=== PATIENT | female | born 1930 | race Caucasian/White ===

== ENCOUNTER 2016-09-07 21:31 | Inpatient (IN) | payer OTHER, MEDICAID ==
[~2016-09-07] VITALS: Ht 167.6 cm; Wt 69.4 kg
--- NOTE | 2016-09-07 21:12 | NUR ---
ROUNDS PT IS AWAKE @ THIS TIME. NO C/O PAIN AND NO RESPI DISTRESS NOTED. BED IN LOW POSITION.CALL LIGHT LIGHT IN REACH,WILL CONT TO MONITOR.
[2016-09-07 21:38] VITALS: BP 137/99; PULSE 102; RESP 20; TEMP 97; O2SAT 97
--- NOTE | 2016-09-07 21:44 | NUR ---
Placed in room 6 . Placed on cardiac catheterization technologist, blood pressure machine and pulse oximeter. To gown for exam. Side rails up. Report given to Rosa Isela TROY.
--- NOTE | 2016-09-07 21:44 | NUR ---
Note hardik in ED - 09/07/16 at 2201 by ISSAC Placed in room 6 . Placed on brownfield program coordinator, blood pressure machine and pulse oximeter. To gown for exam. Side rails up. Report given to Izzy TROY.
--- NOTE | 2016-09-07 21:45 | NUR ---
Pt brought by son, A&O x4, pt c/o SOB with exertion for the last couple days, also redness and +3 pitting edema noted on BLE, skin pink and warm, cap refill <3, VSS.
--- NOTE | 2016-09-07 21:46 | NUR ---
Dr Beal at bedside examining patient
--- NOTE | 2016-09-07 22:00 | NUR ---
Moustapha dye in ED - 09/07/16 at 2347 by [email or web address] Medication reconciliation completed with information provided by pt's son. Any prior medication reconciliation on file was reviewed and corrected.
[2016-09-07] MEDS ORDERED: ASPIRIN 81 MG TAB.CHEW PO ONE (22:15)
[2016-09-07] MEDS ORDERED: FUROSEMIDE 40 MG/4 ML VIAL IVP ONE (22:15)
[2016-09-07 22:25] LABS: HEMATOCRIT 32.1 % (36-48); HEMOGLOBIN 10.4 g/dL (12.0-16.0); MEAN CORPUSCULAR HEMOGLOBIN 29 pg (27-31); MEAN CORPUSCULAR HGB CONC 32 % (32-36); MEAN CORPUSCULAR VOLUME 89 fL (79.0-98.0); PLATELET COUNT (AUTO) 205 K/uL (130-430); RED BLOOD CELL COUNT(AUTO) 3.62 MIL/uL (4.2-6.2); RED CELL DISTRIBUTION WIDTH 13.3 % (9.0-15.0); WHITE BLOOD COUNT (AUTO) 7.7 K/uL (4.8-10.8)
[2016-09-07] MEDS ORDERED: METO25TA3 PO (22:48)
[2016-09-07] MEDS ORDERED: METF-305 PO (22:48)
[2016-09-07] MEDS ORDERED: PARO40TA80 PO (22:48)
[2016-09-07] MEDS ORDERED: ROSU20TA28 PO (22:48)
[2016-09-07] MEDS ORDERED: FURO-150 PO (22:48)
[2016-09-07] MEDS ORDERED: ASPI81TA2 PO (22:48)
--- NOTE | 2016-09-07 22:48 | NUR ---
Medication reconciliation completed with information provided by patient . Any prior medication reconciliation on file was reviewed and corrected.
[2016-09-07 22:53] LABS: ANION GAP 8 (5-15); CALCIUM 8.8 mg/dL (8.4-11.0); CHLORIDE 101 mmol/L (98-107); CREATININE 1.47 mg/dL (0.55-1.30); GLUCOSE 125 mg/dL (70-99); POTASSIUM 3.3 mmol/L (3.5-5.1); SODIUM SERUM 138 mmol/L (136-145); UREA NITROGEN, BLOOD 35 mg/dL (8-21)
[2016-09-07 22:58] LABS: ALANINE AMINOTRANSFERASE 22 U/L (12-78); ALBUMIN 3.4 g/dL (3.4-4.8); ASPARTATE AMINOTRANSFERASE 22 U/L (10-37); CREATINE KINASE, TOTAL 118 U/L (26-192); TOTAL BILIRUBIN 0.6 mg/dL (0.0-1.0)
[2016-09-07 23:06] LABS: PROTHROMBIN TIME 11.3 SECS (9.5-12.5)
[2016-09-07 23:07] LABS: BASOPHILS % (MANUAL) 0 % (0-2); EOSINOPHILS % (MANUAL) 1 % (0-7); LYMPHOCYTES % (MANUAL) 32 % (20-46); MONOCYTES % (MANUAL) 15 % (0-11)
--- NOTE | 2016-09-07 23:07 | NUR ---
Care Endorsed to Carmine TROY
--- NOTE | 2016-09-07 23:11 | NUR ---
pt in bed, son at bedside, VSS, will continue to monitor
--- NOTE | 2016-09-07 23:30 | NUR ---
Pt meets sepsis protocol, ER MD Beal aware of lab result and pt presentation. Awaiting sepsis protocol orders.
[2016-09-07] MEDS ORDERED: FUROSEMIDE 20 MG/2 ML VIAL IVP ONE (23:45)
[2016-09-08] VITALS (7 sets, daily range): BP systolic 120–133; BP diastolic 66–90; PULSE 105–122; RESP 17–20; TEMP 96.9–98.7; O2SAT 97–100
--- NOTE | 2016-09-08 01:08 | NUR ---
Lactic acid result 3.3 and 2.6 . stated that pt has CHF exacerbation, pedal edema, and pleural effusion, pt to be given 500 mL NS bolus and levaquin IV.
[2016-09-08] MEDS ORDERED: NS 500 ML IV ONE (01:15)
[2016-09-08] MEDS ORDERED: POTASSIUM CHLORIDE 20 MEQ TAB.PRT.SR PO ONE ×2 (01:45→13:30)
[2016-09-08] MEDS ORDERED: INSULIN REGULAR, HUMAN 100 UNITS/ML, 10 ML VIAL (novoLIN R) SUBCUT PRN (02:00)
--- NOTE | 2016-09-08 02:12 | NUR ---
Admission Note Received patient from ER with diagnosis of ACUTE CHF. Initial Plan of Care discussed-patient verbalized understanding. Family at bedside. Oriented to room, call light, pain management and safety.
--- NOTE | 2016-09-08 02:13 | NUR ---
Patient will be admitted to care of . Admitted to telemetry unit. Will go to room 120B. Belongings list completed. Summary report printed. Report given to Yuni TROY Transfer to 120B via ACLS protocol. 2 Licensed nurse present. IV present no signs or symptoms of infiltration.
--- NOTE | 2016-09-08 02:31 | NUR ---
CONSULTATION PAGED REASON FOR CONSULTATION:CONGESTIVE HEART FAILURE EXACERBATION WAS CONSULT CALLED?Y PERSON WHO WAS NOTIFIED:BRII CONSULTING PHYSICIAN:NITZA SIMMONS COMMUNITY BOARD MEMBER SPECIALTY:YARD MOTOR OPERATOR PHONE NUMBER:[phone]
--- NOTE | 2016-09-08 02:45 | NUR ---
ROUNDS PATIENT IN BED, AWAKE, ALERT, ORIENTED, VITALS STABLE, DENIES ANY CHEST PAIN AND DISCOMFORT AT THIS TIME. ADMISSION ASSESSMENT DONE AND DOCUMENTED. SEE FLOWSHEET. PLAN OF CARE DISCUSSED AND PATIENT VERBALIZED UNDERSTANDING. ORIENTED TO HER ROOM, PHONE, TV AND CALL LIGHT AND ENCOURAGED TO USE CALL LIGHT FOR HELP WHEN NEEDED. NEEDS ATTENDED TO. SAFETY AND FALL PRECAUTION MEASURES IN PLACED. BED ALARM ON. CALL LIGHT PLACED WITH PATIENT.
[2016-09-08] MEDS ORDERED: POTASSIUM CHLORIDE 30 MEQ in NACL 0.9% 1,000 ML IV SCH (03:45)
--- NOTE | 2016-09-08 04:00 | NUR ---
PATIENT RESTING: Patient resting quietly. No acute distress noted. Vital signs within normal range.
--- NOTE | 2016-09-08 06:50 | NUR ---
CLOSING NOTES PATIENT STABLE, DENIES ANY PAIN AT THIS TIME, ALL NEEDS ATTENDED TO. SAFETY AND FALL PRECAUTION MEASURES MAINTAINED. CALL LIGHT PLACED WITH PATIENT.
[2016-09-08] MEDS: IPRATROPIUM BROM 0.5 MG/2.5 ML VIAL.NEB (ATROVENT) INH SCH ×4 (07:20→23:00)
[2016-09-08] MEDS: ALBUTEROL SULFATE 0.083% 2.5 MG/3 ML VIAL.NEB INH SCH ×4 (07:20→23:00)
--- NOTE | 2016-09-08 08:00 | NUR ---
AM NOTES PT AAOX3 WITH EPISODES OF FORGETFULNESS AND COOK ISLANDER SPEAKING ONLY. NO COMPLAINTS OF PAIN OR DISCOMFORT. NO SOB, DIFFICULTY BREATHING OR DISTRESS NOTED. COMPETITIVE ATHLETE IN PLACE. IV TO RIGHT AC #20G PATENT WITH IV FLUID INFUSING. SAFETY AND FALL PRECAUTIONS ENFORCED WITH BED ALARM ARMED, CLOSE TO NURSE'S STATION AND WITH 3 SIDE RAILS UP. ENCOURAGED TO CALL FOR ASSISTANCE. CALL LIGHT WITHIN REACH. WILL MONITOR.
[2016-09-08] MEDS ORDERED: NACL 0.9% 500 ML IV SCH (08:30)
[2016-09-08 08:55] LABS: CHLORIDE 102 mmol/L (98-107); POTASSIUM 3.4 mmol/L (3.5-5.1); SODIUM SERUM 143 mmol/L (136-145)
[2016-09-08 08:56] LABS: ALANINE AMINOTRANSFERASE 22 U/L (12-78); ALBUMIN 3.1 g/dL (3.4-4.8); ANION GAP 10 (5-15); ASPARTATE AMINOTRANSFERASE 23 U/L (10-37); CALCIUM 8.6 mg/dL (8.4-11.0); CREATINE KINASE, TOTAL 112 U/L (26-192); CREATININE 1.29 mg/dL (0.55-1.30); GLUCOSE 154 mg/dL (70-99); TOTAL BILIRUBIN 0.4 mg/dL (0.0-1.0); TOTAL PROTEIN, SERUM 6.4 g/dL (6.4-8.3); UREA NITROGEN, BLOOD 30 mg/dL (8-21)
[2016-09-08] MEDS ORDERED: METOPROLOL SUCCINATE 25 MG TAB.SR.24H (TOPROL XL) PO SCH (09:00)
[2016-09-08] MEDS ORDERED: PARoxetine HCL 20 MG TABLET PO SCH (09:00)
--- NOTE | 2016-09-08 09:10 | NUR ---
Nutrition Update Omar Scale 17 noted. Pt admitted for CHF exacerbation. Diet: [facility] BMI: 25.8 kg/m2 RD to follow per nutrition care standards.
[2016-09-08] MEDS: ASPIRIN 81 MG TAB.CHEW PO SCH (09:54)
--- NOTE | 2016-09-08 10:00 | NUR ---
ROUNDS PT AWAKE RESTING IN BED AND ASSISTED TO BEDSIDE COMMODE. NO COMPLAINTS OF PAIN OR DISCOMFORT. NO DISTRESS NOTED. BACK IN BED AND KEPT COMFORTABLE. WILL MONITOR.
[2016-09-08] MEDS: FUROSEMIDE 40 MG/4 ML VIAL IVP SCH ×2 (10:16→21:28)
--- NOTE | 2016-09-08 11:00 | NUR ---
NEW IV NEW IV INSERTED TO RIGHT FOREARM #22G. D/C IV TO RIGHT AC DUE TO MACHINE KEEPS BEEPING AND STATES ARM PRESSURE. PT WANTS BEEPING TO STOP.
[2016-09-08 11:46] LABS: BILIRUBIN,URINE NEGATIVE (NEGATIVE); CLARITY/URINE CLEAR (CLEAR); COLOR,URINE YELLOW (YELLOW); GLUCOSE,URINE NEGATIVE (NEGATIVE); KETONES,URINE NEGATIVE (NEGATIVE); LEUKOCYTE ESTERASE ,URINE NEGATIVE (NEGATIVE); NITRITE, URINE NEGATIVE (NEGATIVE); PROTEIN URINE NEGATIVE (NEGATIVE); UROBILINOGEN,URINE 0.2 (0.2-1.0)
[2016-09-08 11:50] LABS: BLOOD, URINE TRACE (NEGATIVE)
[2016-09-08 11:59] LABS: RBC,URINE 0-3 /HPF (0-3)
[2016-09-08 12:00] LABS: BACTERIA,URINE RARE /HPF (None Seen); WBC,URINE NONE SEEN /HPF (0-3)
--- NOTE | 2016-09-08 12:00 | NUR ---
REFUSED INSULIN PT AWAKE. BLOOD SUGAR MONITOR 159. REFUSED INSULIN SLIDING SCALE COVERAGE. EDUCATED ABOUT IMPORTANCE OF INSULIN COVERAGE. CONTINUES TO REFUSE.
[2016-09-08] MEDS: INSULIN REGULAR, HUMAN 100 UNITS/ML, 10 ML VIAL (novoLIN R) SUBCUT PRN ×3 (12:07→22:02)
--- NOTE | 2016-09-08 13:20 | NUR ---
THORACENTESIS PT HAVING THORACENTESIS INSIDE ROOM. NO COMPLAINTS OF PAIN OR DISCOMFORT. NO DISTRESS NOTED.
[2016-09-08 13:51] LABS: BASOPHILS % (AUTO) 0.7 % (0.0-2.0); EOSINOPHILS % (AUTO) 0.6 % (0.0-4.0); HEMATOCRIT 31.8 % (36-48); HEMOGLOBIN 10.8 g/dL (12.0-16.0); LYMPHOCYTES # (AUTO) 1.1 K/uL (1.0-5.5); LYMPHOCYTES % (AUTO) 20.7 % (20.5-51.5); MEAN CORPUSCULAR HEMOGLOBIN 29 pg (27-31); MEAN CORPUSCULAR HGB CONC 34 % (32-36); MEAN CORPUSCULAR VOLUME 86 fL (79.0-98.0); MONOCYTES # (AUTO) 0.6 K/uL (0.0-1.0); MONOCYTES % (AUTO) 12.3 % (1.7-9.3); NEUTROPHILS # (AUTO) 3.6 K/uL (1.8-7.7); NEUTROPHILS % (AUTO) 65.7 % (40.0-70.0); PLATELET COUNT (AUTO) 204 K/uL (130-430); RED BLOOD CELL COUNT(AUTO) 3.71 MIL/uL (4.2-6.2); RED CELL DISTRIBUTION WIDTH 13.4 % (9.0-15.0)
[2016-09-08 13:53] LABS: WHITE BLOOD COUNT (AUTO) 5.3 K/uL (4.8-10.8)
--- NOTE | 2016-09-08 14:08 | NUR ---
Follow up cardiac consult called for Dr. Nahid GALLEGO
--- NOTE | 2016-09-08 16:00 | NUR ---
ROUNDS PT ASLEEP. NO SIGNS OF FACIAL GRIMACING FOR PAIN OR DISCOMFORT. NO DISTRESS NOTED. CALL LIGHT WITHIN REACH. SAFETY AND FALL PRECAUTIONS ENFORCED. WILL CONTINUE TO MONITOR.
[2016-09-08 18:27] LABS: SOURCE/TYPE ,BODY FLUID PLEURAL
[2016-09-08 18:28] LABS: BF APPEARANCE UNSPUN CLEAR (CLEAR); BODY FLUID COLOR YELLOW (LT YELLOW); BODY FLUID TOTAL VOLUME 400 mL; LYMPHOCYTES, BODY FLUID 84 %; NEUTROPHIL, BODY FLUID 16 %; RBC, BODY FLUID 33 /uL; WBC, BODY FLUID 211 /uL
--- NOTE | 2016-09-08 18:30 | NUR ---
CLOSING NOTES PT AWAKE RESTING IN BED. NO SIGNIFICANT CHANGES NOTED. INSULIN SLIDING SCALE ADMINISTERED. KEPT COMFORTABLE. WILL ENDORSE CARE TO INCOMING NURSE.
--- NOTE | 2016-09-08 19:50 | NUR ---
INITIAL NOTE Pt. received aao04, no s/s of sob or distress noted at this time. pt. denies any pain, VSS, with a slightly elevated heart rate, MD aware. will reassess after PM medications. IV access noted to right forearm, SL, no redness or swelling noted to the site. RT at the bedside to do a breathing treatment, asked pt. if possible, to provide a sputum culture, pt. verbalizes understanding. bilateral lower extremity edema noted, pitting +1. elevated legs on pillow to reduce swelling. pt. provided with ice water upon request. plan of care discussed with pt., verbalizes understanding. will continue to monitor throughout the shift. safety and fall precautions in place. call light in reach, bed in lowest position.
[2016-09-08] MEDS: CARVEDILOL 12.5 MG TABLET (COREG) PO SCH (21:27)
[2016-09-08] MEDS: LEVOFLOXACIN 250 MG/D5W 50 ML IV SCH (21:28)
--- NOTE | 2016-09-08 21:42 | NUR ---
paged for Dr Guy, dialed . s/w Elyse.
--- NOTE | 2016-09-08 22:05 | NUR ---
rounds pt. resting in bed, family is at the bedside. IV antibiotic infusing, no adverse reactions noted. pt. states she wishes to have a sleeping pill. spoke with Dr. Willett who ordered restoril, will administer when ready. pt. assisted to use the bedside commode, and back to bed in a comfortable position, supported well with pillows. legs are elevated on a pillow to reduce swelling. will continue to monitor for any changes. safety and fall precautions in place. call light in reach, bed alarm on.
[2016-09-08 22:13] LABS: BODY FLUID GLUCOSE 170 mg/dL; BODY FLUID TOTAL PROTEIN 3.2 g/dL
[2016-09-08] MEDS: TEMAZEPAM 15 MG CAPSULE PO PRN (22:46)
[2016-09-08] MEDS: metroNIDAZOLE 250 mg/NS 50 ML IV SCH (23:19)
[2016-09-09] VITALS (7 sets, daily range): BP systolic 93–138; BP diastolic 51–97; PULSE 78–113; RESP 17–20; TEMP 96.6–98.4; O2SAT 94–97; Ht 167.6 cm; Wt 69.4 kg
--- NOTE | 2016-09-09 00:02 | NUR ---
rounds pt. resting in bed with eyes closed, chest rise and fall noted. no s/s of sob or distress noted at this time. will continue to monitor the pt. for any changes. safety and fall precautions in place, call light in reach, bed alarm on.
--- NOTE | 2016-09-09 02:00 | NUR ---
rounds pt. resting in bed with eyes closed. chest rise and fall noted. no s/s of sob or distress noted at this time. will continue to monitor the pt. for any changes. safety and fall precautions in place. call light in reach, bed alarm on.
[2016-09-09] MEDS: IPRATROPIUM BROM 0.5 MG/2.5 ML VIAL.NEB (ATROVENT) INH SCH ×7 (03:00→23:00)
[2016-09-09] MEDS: ALBUTEROL SULFATE 0.083% 2.5 MG/3 ML VIAL.NEB INH SCH ×7 (03:00→23:00)
--- NOTE | 2016-09-09 04:04 | NUR ---
rounds pt. resting in bed with eyes closed. chest rise and fall noted. no s/s of sob or distress noted. no facial grimacing indicating pain. safety and fall precautions in place. will continue to monitor. call light in reach.
[2016-09-09] MEDS: metroNIDAZOLE 250 mg/NS 50 ML IV SCH ×3 (05:23→22:51)
[2016-09-09 06:12] LABS: BASOPHILS % (AUTO) 0.5 % (0.0-2.0); EOSINOPHILS # (AUTO) 0.1 K/uL (0.0-0.4); EOSINOPHILS % (AUTO) 1.3 % (0.0-4.0); HEMATOCRIT 29.5 % (36-48); HEMOGLOBIN 9.6 g/dL (12.0-16.0); LYMPHOCYTES # (AUTO) 1.4 K/uL (1.0-5.5); LYMPHOCYTES % (AUTO) 27.4 % (20.5-51.5); MEAN CORPUSCULAR HEMOGLOBIN 29 pg (27-31); MEAN CORPUSCULAR HGB CONC 32 % (32-36); MEAN CORPUSCULAR VOLUME 88 fL (79.0-98.0); MONOCYTES # (AUTO) 0.7 K/uL (0.0-1.0); MONOCYTES % (AUTO) 13.8 % (1.7-9.3); NEUTROPHILS # (AUTO) 2.8 K/uL (1.8-7.7); PLATELET COUNT (AUTO) 189 K/uL (130-430); RED BLOOD CELL COUNT(AUTO) 3.35 MIL/uL (4.2-6.2); RED CELL DISTRIBUTION WIDTH 13.6 % (9.0-15.0)
[2016-09-09 06:26] LABS: ALANINE AMINOTRANSFERASE 21 U/L (12-78); ALBUMIN 2.9 g/dL (3.4-4.8); ANION GAP 5 (5-15); ASPARTATE AMINOTRANSFERASE 17 U/L (10-37); CALCIUM 8.4 mg/dL (8.4-11.0); CHLORIDE 103 mmol/L (98-107); CHOLESTEROL 117 mg/dL (<200); CREATININE 1.27 mg/dL (0.55-1.30); GLUCOSE 87 mg/dL (70-99); HDL CHOLESTEROL 63 mg/dL (>55); LDL CHOLESTEROL 40 mg/dL (<100); POTASSIUM 3.2 mmol/L (3.5-5.1); SODIUM SERUM 140 mmol/L (136-145); THYROID STIMULATING HORMONE 2.91 uIu/mL (0.34-4.82); TOTAL BILIRUBIN 0.5 mg/dL (0.0-1.0); TOTAL PROTEIN, SERUM 6.3 g/dL (6.4-8.3); TRIGLYCERIDES 40 mg/dL (30-150); UREA NITROGEN, BLOOD 31 mg/dL (8-21)
--- NOTE | 2016-09-09 06:51 | NUR ---
closing note pt. assisted to use the bedside commode, voided freely. assisted back to bed in a comfortable position supported well with pillows. legs are elevated to reduce swelling. all necessary needs were met throughout the shift. safety and fall precautions were maintained. will endorse care to am nurse. call light in reach, bed in lowest position.
[2016-09-09] MEDS ORDERED: POTASSIUM CHLORIDE 20 MEQ TAB.PRT.SR PO ONE ×2 (07:45→08:00)
--- NOTE | 2016-09-09 08:00 | NUR ---
AM NOTES: RECEIVED PATIENT LYING IN BED, ALERT, AWAKE, ORIENTEDX3, [place] SPEAKING. DENIES PAIN AND DISCOMFORT. LUNG SOUND CLEAR ON COUGH, HYPOACTIVE BOWEL SOUND. IV ACCESS SALINE LOCK PATENT. NO SKIN BREAKDOWN. LUPILLO LE EDEMA +1 ELEVATED WITH PILLOW. INFORMED ABOUT THE POC. PT VERBALIZED UNDERSTANDING. CALL LIGHT WITHIN REACH. BED IS LOW AND LOCK POSITION. SIDE RAIL X2 UP. WILL MONITOR.
--- NOTE | 2016-09-09 08:30 | NUR ---
MD ROUNDS: SEEN BY DR. HENRIQUEZ WITH NEW ORDER RECEIVED.
[2016-09-09] MEDS ORDERED: POTASSIUM CHLORIDE 20 MEQ/PKT PACKET PO SCH (09:00)
[2016-09-09] MEDS: PARoxetine HCL 20 MG TABLET PO SCH (09:17)
[2016-09-09] MEDS: CARVEDILOL 12.5 MG TABLET (COREG) PO SCH ×2 (09:18→21:26)
[2016-09-09] MEDS: ASPIRIN 81 MG TAB.CHEW PO SCH (09:18)
[2016-09-09] MEDS: FUROSEMIDE 40 MG/4 ML VIAL IVP SCH ×2 (09:20→21:25)
[2016-09-09] MEDS: ENOXAPARIN SODIUM 30 MG/0.3 ML SYRINGE SUBCUT SCH (09:20)
[2016-09-09] MEDS ORDERED: AMIODARONE HCL 200 MG TABLET PO ONE (10:00)
--- NOTE | 2016-09-09 10:12 | NUR ---
CARDIO CONSULT: SEEN BY DR. RONDON WITH NEW ORDERS.NOTED.
--- NOTE | 2016-09-09 12:00 | NUR ---
assisted patient to the bedside commode, voided 400ml output.
[2016-09-09] MEDS: INSULIN REGULAR, HUMAN 100 UNITS/ML, 10 ML VIAL (novoLIN R) SUBCUT PRN ×3 (12:17→21:37)
--- NOTE | 2016-09-09 15:00 | NUR ---
patient resting, no s/s of distress. will monitor.
--- NOTE | 2016-09-09 17:30 | NUR ---
blood sugar 223. 4 units of regular insulin administered.
--- NOTE | 2016-09-09 18:26 | NUR ---
all needs mets. no s/s of distress. vital sign stable, afebrile. iv access patent. will endorsed to incoming nurse.
--- NOTE | 2016-09-09 19:30 | NUR ---
INITIAL NOTE Pt. received aao04, no s/s of sob or distress noted at this time. pt. denies any pain, VSS, with a slightly elevated heart rate, A FIB on the heart monitor, will reassess heart rate following PM dose of amiodarone that has been ordered by . IV access noted to right forearm, SL, no redness or swelling noted to the site. pt. states she would like a sleeping pill this evening following her scheduled breathing treatment, will administer as ordered. family is at the bedside. plan of care discussed with pt., verbalizes understanding. pt. is able to make needs known and agrees to call for any assistance prior to getting out of bed to use the bedside commode. will continue to monitor throughout the shift. safety and fall precautions in place. call light in reach, bed in lowest position, alarm on.
[2016-09-09] MEDS: LEVOFLOXACIN 250 MG/D5W 50 ML IV SCH (21:25)
[2016-09-09] MEDS: AMIODARONE HCL 200 MG TABLET PO SCH (21:26)
--- NOTE | 2016-09-09 22:08 | NUR ---
ROUNDS PT. RESTING IN BED, NO S/S OF SOB OR DISTRESS NOTED. PM MEDS GIVEN, NO ADVERSE REACTIONS NOTED FROM ANTIBIOTIC INITIATION. INFUSING WELL. 2 UNITS OF REGULAR INSULIN GIVEN PER SLIDING SCALE. PT. LEFT IN A COMFORTABLE POSITION, SUPPORTED WELL WITH PILLOWS. PT. HAS ASKED FOR HER SLEEPING PILL FOLLOWING HER 2300 BREATHING TREATMENT, WILL ADMINISTER ORDERED. PT. WAS INSTRUCTED TO CALL FOR ANY ASSISTANCE WITH GETTING UP TO USE THE BEDSIDE COMMODE. WILL CONTINUE TO MONITOR. SAFETY AND FALL PRECAUTIONS IN PLACE. CALL LIGHT IN REACH, BED ALARM ON.
--- NOTE | 2016-09-10 00:02 | NUR ---
rounds pt. resting in bed with eyes closed. chest rise and fall noted. no s/s of sob or distress noted at this time. will continue to monitor the pt. for any changes. safety and fall precautions in place. call light in reach, bed in lowest position.
--- NOTE | 2016-09-10 02:51 | NUR ---
rounds pt. resting in bed with eyes closed. chest rise and fall noted. no s/s of sob or distress. will continue to monitor. safety and fall precautions in place. call light in reach.
[2016-09-10] MEDS: IPRATROPIUM BROM 0.5 MG/2.5 ML VIAL.NEB (ATROVENT) INH SCH ×6 (03:00→23:00)
[2016-09-10] MEDS: ALBUTEROL SULFATE 0.083% 2.5 MG/3 ML VIAL.NEB INH SCH ×6 (03:00→23:00)
--- NOTE | 2016-09-10 04:14 | NUR ---
rounds assisted pt. to the bedside commode, pt. voided freely. assisted back to bed in a comfortable position supported well with pillows. no s/s of sob or distress noted. pt. denies any pain at this time. will continue to monitor. safety and fall precautions in place. call light in reach, bed in lowest position.
[2016-09-10 04:48] VITALS: BP 108/62; PULSE 64; RESP 18; TEMP 98.2; O2SAT 97
[2016-09-10] MEDS: metroNIDAZOLE 250 mg/NS 50 ML IV SCH ×3 (06:23→22:44)
[2016-09-10] MEDS: INSULIN REGULAR, HUMAN 100 UNITS/ML, 10 ML VIAL (novoLIN R) SUBCUT PRN ×4 (06:46→21:01)
[2016-09-10 06:47] LABS: ANION GAP 6 (5-15); CALCIUM 8.6 mg/dL (8.4-11.0); CHLORIDE 101 mmol/L (98-107); CREATININE 1.47 mg/dL (0.55-1.30); GLUCOSE 171 mg/dL (70-99); POTASSIUM 3.2 mmol/L (3.5-5.1); SODIUM SERUM 139 mmol/L (136-145); UREA NITROGEN, BLOOD 34 mg/dL (8-21)
--- NOTE | 2016-09-10 06:53 | NUR ---
CLOSING NOTE PT. RESTING IN BED WITH EYES CLOSED. SON IS AT THE BEDSIDE. IV ANTIBIOTIC INFUSING WELL, NO ADVERSE REACTION NOTED. 2 UNITS OF INSULIN WERE GIVEN PER SLIDING SCALE FOR BS OF 176. ALL NECESSARY NEEDS WERE MET THROUGHOUT THE SHIFT. PT. KEPT COMFORTABLE. SAFETY AND FALL PRECAUTIONS WERE MAINTAINED. WILL ENDORSE CARE TO AM NURSE. CALL LIGHT IN REACH, BED IN LOWEST POSITION.
[2016-09-10 06:55] LABS: BASOPHILS % (AUTO) 0.8 % (0.0-2.0); EOSINOPHILS # (AUTO) 0.1 K/uL (0.0-0.4); EOSINOPHILS % (AUTO) 1.2 % (0.0-4.0); HEMATOCRIT 30.1 % (36-48); HEMOGLOBIN 9.7 g/dL (12.0-16.0); LYMPHOCYTES # (AUTO) 1.4 K/uL (1.0-5.5); LYMPHOCYTES % (AUTO) 23.7 % (20.5-51.5); MEAN CORPUSCULAR HEMOGLOBIN 29 pg (27-31); MEAN CORPUSCULAR HGB CONC 32 % (32-36); MEAN CORPUSCULAR VOLUME 88 fL (79.0-98.0); MONOCYTES # (AUTO) 0.8 K/uL (0.0-1.0); MONOCYTES % (AUTO) 14.1 % (1.7-9.3); NEUTROPHILS # (AUTO) 3.6 K/uL (1.8-7.7); NEUTROPHILS % (AUTO) 60.2 % (40.0-70.0); PLATELET COUNT (AUTO) 186 K/uL (130-430); RED BLOOD CELL COUNT(AUTO) 3.41 MIL/uL (4.2-6.2); RED CELL DISTRIBUTION WIDTH 13.4 % (9.0-15.0); WHITE BLOOD COUNT (AUTO) 5.9 K/uL (4.8-10.8)
[2016-09-10 08:00] VITALS: BP 131/78; PULSE 93; RESP 16; TEMP 97.5; O2SAT 95
--- NOTE | 2016-09-10 08:02 | NUR ---
OPENING NOTE RECEIVED REPORT FROM NIGHT NURSE, PATIENT IS RESTING IN BED COMFORTABLY WITH NO COMPLAINTS OF PAIN, NO NOTED DISTRESS, DISCOMFORT OR SOB. PATIENT IS ALERT AND ORIENTED AND ABLE TO COMMUNICATE NEEDS TO STAFF. PATIENT IS AMBULATORY WITH ASSISTANCE. BED IS IN LOWEST POSITION AND IS EDUCATED NOT TO GET UP WITHOUT ASSISTANCE. CALL LIGHT IS WITHIN REACH AND WILL CONTINUE TO MONITOR.
[2016-09-10] MEDS: ENOXAPARIN SODIUM 30 MG/0.3 ML SYRINGE SUBCUT SCH (09:35)
[2016-09-10] MEDS: ASPIRIN 81 MG TAB.CHEW PO SCH (09:36)
[2016-09-10] MEDS: CARVEDILOL 12.5 MG TABLET (COREG) PO SCH ×2 (09:36→20:50)
[2016-09-10] MEDS: PARoxetine HCL 20 MG TABLET PO SCH (09:36)
[2016-09-10] MEDS: AMIODARONE HCL 200 MG TABLET PO SCH ×2 (09:37→20:49)
--- NOTE | 2016-09-10 10:00 | NUR ---
NOTE PATIENT IS RESTING IN BED COMFORTABLY WITH NO COMPLAINTS OF PAIN, NO NOTED DISTRESS, DISCOMFORT OR SOB. PATIENT'S BED IS IN LOWEST POSITION AND CALL LIGHT IS WITHIN REACH. FAMILY IS AT BEDSIDE AND WILL CONTINUE TO MONITOR.
--- NOTE | 2016-09-10 12:24 | NUR ---
NOTE PATIENT IS RESTING IN CHAIR COMFORTABLY WITH NO COMPLAINTS OF PAIN, NO NOTED DISTRESS, DISCOMFORT OR SOB. PATIENT'S BS IS 268 AND 6 UNITS OF REGULAR INSULIN AND ANOTHER RN TO WITNESS. FAMILY IS AT BEDSIDE AND CALL LIGHT IS WITHIN REACH AND WILL CONTINUE TO MONITOR.
[2016-09-10 12:35] VITALS: BP 93/59; PULSE 98; RESP 17; TEMP 97.6; O2SAT 97
--- NOTE | 2016-09-10 14:30 | NUR ---
NOTE PATIENT IS RESTING IN CHAIR COMFORTABLY WITH NO COMPLAINTS OF PAIN, NO NOTED DISTRESS, DISCOMFORT OR SOB. FAMILY IS AT BEDSIDE AND CALL LIGHT IS WITHIN REACH. WILL CONTINUE TO MONITOR.
[2016-09-10 15:33] VITALS: BP 115/59; PULSE 91; RESP 17; TEMP 97; O2SAT 96
--- NOTE | 2016-09-10 16:30 | NUR ---
NOTE PATIENT IS RESTING IN BED COMFORTABLY WITH NO COMPLAINTS OF PAIN, NO NOTED DISTRESS, DISCOMFORT OR SOB. CALL LIGHT IS WITHIN REACH AND WILL CONTINUE TO MONITOR.
--- NOTE | 2016-09-10 18:13 | NUR ---
CLOSING NOTE PATIENT IS RESTING IN BED COMFORTABLY WITH NO COMPLAINTS OF PAIN, NO NOTED DISTRESS, DISCOMFORT OR SOB. PATIENT'S BS WAS 242 AND 4 UNITS OF REGULAR INSULIN WAS GIVEN WITH ANOTHER RN TO WITNESS. PATIENT IS ALERT AND ORIENTED AND ABLE TO COMMUNICATE NEEDS TO STAFF. FAMILY IS AT BEDSIDE AND CALL LIGHT IS WITHIN REACH. WILL GIVE REPORT TO NIGHT NURSE.
[2016-09-10] MEDS ORDERED: POTASSIUM CHLORIDE 20 MEQ TAB.PRT.SR PO ONE (19:00)
[2016-09-10 19:12] VITALS: BP 115/75; PULSE 82; RESP 18; TEMP 98.6; O2SAT 97
--- NOTE | 2016-09-10 19:12 | NUR ---
INITIAL NOTES RECVD PT IN BED, A/A/O X2 WITH SON @ BEDSIDE.NO C/O PAIN AND NO SOB NOTED. V/S 115/75,98.6,82,19,97%. IV NOTED TO R F/A G 22,NO INFILTRATE AND GOOD BLOOD RETURN. BUE ARE STRONG AND BLE ARE WEAK,NEEDS ASSISTANCE TO BEDSIDE COMMODE. DISCUSSED PLAN OF CARE WITH PT AND VERBALIZED UNDERSTANDING. CALL LIGHT WITHIN REACH,WILL CONT TO MONITOR.
[2016-09-10] MEDS: LEVOFLOXACIN 250 MG/D5W 50 ML IV SCH (20:50)
[2016-09-10] MEDS: POTASSIUM CHLORIDE 20 MEQ TAB.PRT.SR PO SCH (20:52)
[2016-09-10] MEDS ORDERED: FUROSEMIDE 40 MG/4 ML VIAL IVP SCH (21:00)
[2016-09-10] MEDS: TEMAZEPAM 15 MG CAPSULE PO PRN (21:04)
--- NOTE | 2016-09-10 21:30 | NUR ---
ASSISTED TO COMMODE AND SAFELY BACKED TO BED. CALL LIGHT WITHIN REACH
--- NOTE | 2016-09-10 23:12 | NUR ---
ROUNDS PT IS COMFORTABLY SLEEPING @ THIS TIME. NO C/O PAIN AND NO RESPI DISTRESS NOTED. CALL LIGHT WITHIN REACH, WILL CONT TO MONITOR.
[2016-09-11] VITALS (7 sets, daily range): BP systolic 99–156; BP diastolic 59–100; PULSE 68–109; RESP 16–18; TEMP 97–98.2; O2SAT 95–100
--- NOTE | 2016-09-11 01:12 | NUR ---
ROUNDS PT IS COMFORTABLY SLEEPING @ THIS TIME. NO C/O PAIN AND NO SOB NOTED.CALL LIGHT WITHIN REACH,WILL CONTT O MONITOR.
[2016-09-11] MEDS: IPRATROPIUM BROM 0.5 MG/2.5 ML VIAL.NEB (ATROVENT) INH SCH ×4 (03:00→19:40)
[2016-09-11] MEDS: ALBUTEROL SULFATE 0.083% 2.5 MG/3 ML VIAL.NEB INH SCH ×4 (03:00→19:40)
--- NOTE | 2016-09-11 03:12 | NUR ---
ROUNDS PT IS RESTING COMFORTABLY. NO C/O PAIN AND NO RESPI DISTRESS NOTED. CALL LIGHT WITHIN REACH. WILL CONT TO MONITOR.
[2016-09-11] MEDS: metroNIDAZOLE 250 mg/NS 50 ML IV SCH (06:40)
[2016-09-11 07:02] LABS: BASOPHILS % (AUTO) 0.4 % (0.0-2.0); EOSINOPHILS # (AUTO) 0.1 K/uL (0.0-0.4); EOSINOPHILS % (AUTO) 1.3 % (0.0-4.0); HEMATOCRIT 30.8 % (36-48); HEMOGLOBIN 9.9 g/dL (12.0-16.0); LYMPHOCYTES # (AUTO) 1.5 K/uL (1.0-5.5); LYMPHOCYTES % (AUTO) 23.2 % (20.5-51.5); MEAN CORPUSCULAR HEMOGLOBIN 28 pg (27-31); MEAN CORPUSCULAR HGB CONC 32 % (32-36); MEAN CORPUSCULAR VOLUME 88 fL (79.0-98.0); MONOCYTES # (AUTO) 0.8 K/uL (0.0-1.0); MONOCYTES % (AUTO) 12.6 % (1.7-9.3); NEUTROPHILS % (AUTO) 62.5 % (40.0-70.0); PLATELET COUNT (AUTO) 200 K/uL (130-430); RED CELL DISTRIBUTION WIDTH 13.6 % (9.0-15.0); WHITE BLOOD COUNT (AUTO) 6.4 K/uL (4.8-10.8)
--- NOTE | 2016-09-11 07:15 | NUR ---
HANDOFF REPORT AT PATIENT BEDSIDE. PATIENT SLEEPING AT THIS TIME.
[2016-09-11 07:16] LABS: ANION GAP 6 (5-15); CALCIUM 8.8 mg/dL (8.4-11.0); CHLORIDE 101 mmol/L (98-107); CREATININE 1.51 mg/dL (0.55-1.30); GLUCOSE 137 mg/dL (70-99); POTASSIUM 3.5 mmol/L (3.5-5.1); SODIUM SERUM 141 mmol/L (136-145); UREA NITROGEN, BLOOD 37 mg/dL (8-21)
--- NOTE | 2016-09-11 08:50 | NUR ---
ROUNDS TO PATIENT. NEEDS MET AT THIS TIME.
[2016-09-11] MEDS: FUROSEMIDE 40 MG TABLET PO SCH ×2 (10:01→21:03)
[2016-09-11] MEDS: PARoxetine HCL 20 MG TABLET PO SCH (10:01)
[2016-09-11] MEDS: AMIODARONE HCL 200 MG TABLET PO SCH ×2 (10:02→21:02)
[2016-09-11] MEDS: POTASSIUM CHLORIDE 20 MEQ TAB.PRT.SR PO SCH ×2 (10:02→21:02)
[2016-09-11] MEDS: ASPIRIN 81 MG TAB.CHEW PO SCH (10:02)
[2016-09-11] MEDS: CARVEDILOL 12.5 MG TABLET (COREG) PO SCH ×2 (10:03→21:04)
[2016-09-11] MEDS: ENOXAPARIN SODIUM 30 MG/0.3 ML SYRINGE SUBCUT SCH (10:03)
--- NOTE | 2016-09-11 11:00 | NUR ---
PATIENT TOLERATED 100% OF BREAKFAST AT THIS TIME.
--- NOTE | 2016-09-11 13:00 | NUR ---
PATIENT ROUNDS. NEEDS MET AT THIS TIME.
[2016-09-11] MEDS: INSULIN REGULAR, HUMAN 100 UNITS/ML, 10 ML VIAL (novoLIN R) SUBCUT PRN ×3 (14:41→21:13)
--- NOTE | 2016-09-11 15:00 | NUR ---
PATIENT SEATED IN CHAIR. PATIENT ROUNDS WITH ATTENDING MD COVERING, DOCTOR HENRIQUEZ.
--- NOTE | 2016-09-11 16:11 | NUR ---
PHYSICAL THERAPY CO-SIGN The Physical Therapy Progress Notes documented by Casing Trimmer have been reviewed. Reviewed/Co-Signed by: Candace Carrero Documentation Done by:SLADE DURBIN IT SALES CONSULTANT POC REVIEWED W/ IT SALES CONSULTANT. 09/11/16 XR CHEST:PERSISTENT CARDIOMEGALY, SMALL (B)PLEURAL EFFUSIONS & FINDINGS CONSISTENT W/ CHF Addendum: 09/11/16 at 1612 by Candace Carrero PT Amended: Links added.
--- NOTE | 2016-09-11 16:56 | NUR ---
ROUNDS TO PATIENT. VITAL SIGNS RECORDED. WILL CONTINUE TO MONITOR BLOOD GLUCOSE AT THIS TIME.
--- NOTE | 2016-09-11 19:22 | NUR ---
Shift summary: pending adjustment eval in am from Doctor Whitfield. Doctor Brooks says pt to d/c am. Son, Chase, Dentist notified. Patient handoff report at bedside.
--- NOTE | 2016-09-11 19:30 | NUR ---
notes received the pt from the day nurse.pt sitting up in a chair with no complaints ,understands some engish but is turkmen speaking.call light within reach.iv intact to rt forearm,monitor in place and shows SRwill continue to monitor.
--- NOTE | 2016-09-11 21:58 | NUR ---
notes assisted back to bed ,family are at the bedside.accucheck was 262,insulin given per s/s.
[2016-09-11] MEDS: TEMAZEPAM 15 MG CAPSULE PO PRN (22:06)
--- NOTE | 2016-09-11 23:21 | NUR ---
notes pt sleeping ,call light within reach.continue to monitor.
[2016-09-12] VITALS: BP 100/89; PULSE 76; RESP 18; TEMP 98.7; O2SAT 96
[2016-09-12] MEDS: IPRATROPIUM BROM 0.5 MG/2.5 ML VIAL.NEB (ATROVENT) INH SCH ×5 (00:43→15:32)
[2016-09-12] MEDS: ALBUTEROL SULFATE 0.083% 2.5 MG/3 ML VIAL.NEB INH SCH ×5 (00:43→15:32)
--- NOTE | 2016-09-12 03:29 | NUR ---
notes pt sleeping,call light within reach,no sob noted.continue to monitor.
[2016-09-12 04:16] VITALS: BP 126/80; PULSE 89; RESP 17; TEMP 97.6; O2SAT 97
--- NOTE | 2016-09-12 05:25 | NUR ---
notes pt remains asleep,call light within reach.continue to monitor.
--- NOTE | 2016-09-12 06:21 | NUR ---
closing notes pt voided on the commode.accucheck was 137.no insulin needed will endorse the care of the pt to the day nurse.
[2016-09-12 07:30] LABS: ANION GAP 7 (5-15); CALCIUM 8.8 mg/dL (8.4-11.0); CHLORIDE 100 mmol/L (98-107); CREATININE 1.27 mg/dL (0.55-1.30); GLUCOSE 131 mg/dL (70-99); POTASSIUM 3.5 mmol/L (3.5-5.1); SODIUM SERUM 140 mmol/L (136-145); UREA NITROGEN, BLOOD 39 mg/dL (8-21)
--- NOTE | 2016-09-12 07:30 | NUR ---
Handoff rounds this hour. Patient suprised noc nurse with independence. Needs met. Breakfast tray passed.
[2016-09-12 08:39] VITALS: BP 111/60; PULSE 110; RESP 16; TEMP 98.3; O2SAT 97
[2016-09-12] MEDS: ASPIRIN 81 MG TAB.CHEW PO SCH (09:00)
[2016-09-12] MEDS: PARoxetine HCL 20 MG TABLET PO SCH (09:34)
[2016-09-12] MEDS: AMIODARONE HCL 200 MG TABLET PO SCH (09:35)
[2016-09-12] MEDS: FUROSEMIDE 40 MG TABLET PO SCH (09:35)
[2016-09-12] MEDS: ENOXAPARIN SODIUM 30 MG/0.3 ML SYRINGE SUBCUT SCH (09:36)
[2016-09-12] MEDS: POTASSIUM CHLORIDE 20 MEQ TAB.PRT.SR PO SCH (09:36)
[2016-09-12] MEDS: CARVEDILOL 12.5 MG TABLET (COREG) PO SCH (09:36)
--- NOTE | 2016-09-12 09:39 | NUR ---
Son available at bedside for patient. Will stay in am for visit. Return in afternoon to evening.
--- NOTE | 2016-09-12 10:41 | NUR ---
PIYUSH PLANNING Spoke w pt & son @ bedside in romanian per son's request. Son states plan is to dc home today, would like to have home health for phys therapy for pt. Informed had choice of home health companies, [facility] whoever Dr Guy recommends. Would prefer a romanian speaking therapist. Signed choices letter. Called & discussed w Dr Guy, gave ph order for home health, states recommends [facility] or [facility]. Informed piyush Shrestha digital sales planner. Addendum: 09/12/16 at 1234 by Henrietta CORDERO Faxed home health referral to [phone]. Will follow up. Addendum: 09/12/16 at 1444 by Henrietta Jones DP Spoke with Buddy in intake dept patient accepted and will call patient/family to make visit arrangements. WOODROW chavez aware.
--- NOTE | 2016-09-12 11:39 | NUR ---
Rounds to patient. Needs met at this time.
--- NOTE | 2016-09-12 13:10 | NUR ---
Patient rounds. Tolerated 100% of lunch.
[2016-09-12 14:00] VITALS: BP 125/62; PULSE 101; RESP 16; TEMP 98.3; O2SAT 99
[2016-09-12 15:12] VITALS: BP 125/62; PULSE 101; RESP 16; TEMP 98.3; O2SAT 99
--- NOTE | 2016-09-12 15:16 | NUR ---
Patient requesting to go home today. Will follow up with home health care as arranged per case management.
[2016-09-12] MEDS ORDERED: COR12.5 PO (16:21)
--- NOTE | 2016-09-12 17:08 | NUR ---
D/C Patient Patient given medication reconciliation form and D/C instructions. Exit Care provided. Patient verbalized understanding. MD discussed with patient the results and treatment provided. Ambulatory with steady gait for discharge to home. Patient in stable condition, ID band removed. IV catheter removed, intact and dressing applied, no active bleeding. Electronic Rx given. Patient educated on pain management. All belongings sent with patient.
--- NOTE | 2016-09-12 17:10 | NUR ---
PHYSICAL THERAPY CO-SIGN The Physical Therapy Progress Notes documented by Internal Medicine Physician have been reviewed. I CONCUR W/ENVELOPE MACHINE ADJUSTER NOTE Reviewed/Co-Signed by: Bianka Flynn PT Documentation Done by: IAM MCCARTHY ENVELOPE MACHINE ADJUSTER Addendum: 09/13/16 at 1516 by Bianka Flynn PT Amended: Links added.
--- NOTE | 2016-09-13 16:24 | NUR ---
Discharge Follow Up Phone Call HAZARDOUS MATERIAL SPECIALIST phoned patient, , and left a voicemail message. Patient's son, Chase, returned the call. Patient saw her filenet p8 developer today. The prescribed medication is not affordable. He does not know what to do. HAZARDOUS MATERIAL SPECIALIST told him to phone the pharmacist and explain they could not afford the medication and to call the physician and find an affordable alternative. He will do that. [facility] has set up a visit. Sas Etl Developer will remain available upon request.
== END 2016-09-12 16:04 | disposition home health service (06) | DRG 871 ==
LOC: SED 21:31 → STU 09-08 01:58
PROVIDERS: ADMIT Internal Medicine; ATTEND Internal Medicine
PROC: 0W993ZZ Drainage of Right Pleural Cavity, Percutaneous Approach (ICD-10-PCS; principal; 2016-09-08)
PROC: BB4BZZZ Ultrasonography of Pleura (ICD-10-PCS; 2016-09-08)
DX: A41.9 Sepsis, unspecified organism (principal); J69.0 Pneumonitis due to inhalation of food and vomit; I50.43 Acute on chronic combined systolic (congestive) and diastolic (congestive) heart failure; N17.9 Acute kidney failure, unspecified; E44.0 Moderate protein-calorie malnutrition; E87.2 Acidosis; D64.9 Anemia, unspecified; E11.9 Type 2 diabetes mellitus without complications; E78.5 Hyperlipidemia, unspecified; F41.9 Anxiety disorder, unspecified; I48.2 Chronic atrial fibrillation; I11.0 Hypertensive heart disease with heart failure; Z79.82 Long term (current) use of aspirin; Z79.899 Other long term (current) drug therapy; Z91.81 History of falling; Z68.24 Body mass index [BMI] 24.0-24.9, adult
CPT/HCPCS: 32555; 36415; 71010; 80048; 80053; 80061; 81000-TC; 82550-TC; 82947-TC; 82962; 83605; 83735-TC; 83880; 84157-TC; 84443-TC; 84484; 85007; 85025; 85027; 85610-TC; 87040-TC; 87070-TC; 88108; 89051-TC; 89060-TC; 93005; 93306; 93970; 94640; 94760; 96365; 96375; 96376; 97110-GP; 97116-GP; 97530-GP; 99285; C1729; J1650; J1815; J1940; J1956; J3480; J3490; J7030; J7040; J7050

== ENCOUNTER 2018-12-17 08:30 | Emergency (ER) | payer OTHER, MEDICAID ==
[~2018-12-17] VITALS: Ht 162.6 cm; Wt 66.7 kg
[~2018-12-17 08:30] MED LIST: ASPI-1155 PO; COR12.5 PO; FURO-150 PO; METF-381 PO; PARO40TA80 PO; ROSU20TA31 PO
[2018-12-17 09:02] VITALS: BP_SYST 145
--- NOTE | 2018-12-17 09:11 | NUR ---
Patient transported to radiology via wheelchair, accompanied by rad staff.
--- NOTE | 2018-12-17 09:21 | NUR ---
Pt returned in stable condition
--- NOTE | 2018-12-17 09:31 | NUR ---
ER Dr. Muller at bedside examining patient.
--- NOTE | 2018-12-17 09:37 | NUR ---
Pt presents with right eye droop x2 weeks with pain. Gaze to right side, unable to follow with right eye, unable to open right eye on command. No redness, no drainage. Pupils PERRL. Denies fever, chills, denies n/v, denies dizziness. Smile even, able to raise both eyebrows. No weakness to extremities.
[2018-12-17] MEDS ORDERED: KETOROLAC TROMETHAMINE 30 MG VIAL IM ONE (10:00)
[2018-12-17 10:21] LABS: BASOPHILS % (AUTO) 0.7 % (0.0-2.0); EOSINOPHILS % (AUTO) 0.8 % (0.0-4.0); HEMATOCRIT 33.8 % (36-48); LYMPHOCYTES # (AUTO) 1.3 K/uL (1.0-5.5); MEAN CORPUSCULAR HEMOGLOBIN 28 pg (27-31); MEAN CORPUSCULAR HGB CONC 33 % (32-36); MEAN CORPUSCULAR VOLUME 87 fL (79.0-98.0); MONOCYTES # (AUTO) 0.5 K/uL (0.0-1.0); MONOCYTES % (AUTO) 9.6 % (1.7-9.3); NEUTROPHILS # (AUTO) 3.8 K/uL (1.8-7.7); NEUTROPHILS % (AUTO) 65.9 % (40.0-70.0); PLATELET COUNT (AUTO) 195 K/uL (130-430); RED BLOOD CELL COUNT(AUTO) 3.89 MIL/uL (4.2-6.2); RED CELL DISTRIBUTION WIDTH 16.3 % (9.0-15.0); WHITE BLOOD COUNT (AUTO) 5.7 K/uL (4.8-10.8)
[2018-12-17] MEDS ORDERED: KETOROLAC TROMETHAMINE 30 MG VIAL IVP ONE (10:30)
[2018-12-17 10:33] LABS: PROTHROMBIN TIME 10.6 SECS (9.5-12.5)
[2018-12-17 10:35] LABS: ANION GAP 12 (5-15); CALCIUM 9.2 mg/dL (8.4-11.0); CHLORIDE 100 mmol/L (98-107); CREATININE 1.12 mg/dL (0.55-1.30); GLUCOSE 155 mg/dL (70-99); POTASSIUM 3.6 mmol/L (3.5-5.1); SODIUM SERUM 137 mmol/L (136-145); UREA NITROGEN, BLOOD 21 mg/dL (8-21)
--- NOTE | 2018-12-17 10:40 | NUR ---
Pt tolerated medication well, no adverse reaction
[2018-12-17 10:41] LABS: ALANINE AMINOTRANSFERASE 22 U/L (12-78); ALBUMIN 3.5 g/dL (3.4-4.8); ASPARTATE AMINOTRANSFERASE 17 U/L (10-37); TOTAL BILIRUBIN 0.5 mg/dL (0.0-1.0)
--- NOTE | 2018-12-17 11:39 | NUR ---
Off unit for MRA via wheelchair. VSS, denies pain or dizziness. No acute distress.
[2018-12-17 13:33] VITALS: BP_SYST 138
--- NOTE | 2018-12-17 13:33 | NUR ---
Patient given written and verbal discharge instructions and verbalizes understanding. ER MD discussed with patient the results and treatment provided. Patient in stable condition. ID arm band removed. IV catheter removed intact and dressing applied, no active bleeding. Rx of acyclovir, motrin, and prednisone given. Patient educated on pain management and to follow up with PMD. Pain Scale 0/10. Opportunity for questions provided and answered. Medication side effect fact sheet provided.
== END 2018-12-17 13:33 | disposition home or self-care (01) ==
LOC: SED 08:30
DX: H49.01 Third [oculomotor] nerve palsy, right eye (principal); E11.9 Type 2 diabetes mellitus without complications; I10 Essential (primary) hypertension; Z79.82 Long term (current) use of aspirin; Z79.899 Other long term (current) drug therapy
CPT/HCPCS: 36415; 70450; 70544; 80053; 85025; 85610; 85730; 96374; 99284; J1885

== ENCOUNTER 2020-08-10 03:10 | Emergency (ER) | payer OTHER, MEDICAID ==
[~2020-08-10] VITALS: Ht 152.4 cm; Wt 72.6 kg
[~2020-08-10 03:10] MED LIST changes: -ROSU20TA31 PO; +ROSU20TA32 PO
--- NOTE | 2020-08-10 03:12 | NUR ---
Pt present to ER for nosebleed x one hour ago. Pt was sleeping and woke up with blood running down her nose. Pt has hx of HTN. Unknown other past medical history. EMT stated pt takes Eliquis, denies allergies. Denies CP, cough, fevers sob.
--- NOTE | 2020-08-10 03:14 | NUR ---
Patient to ER bed 5 to gown for evaluation. Side rails up. Report given to Fabiola TROY.
[2020-08-10 03:15] VITALS: BP_SYST 141
--- NOTE | 2020-08-10 03:16 | NUR ---
ER at bedside examining patient.
--- NOTE | 2020-08-10 04:10 | NUR ---
Pt actively bleeding from L nare, pt told to blow her nose and nose clip placed. Dr Yun made aware.
[2020-08-10 04:35] LABS: BASOPHILS % (AUTO) 0.6 % (0.0-2.0); EOSINOPHILS # (AUTO) 0.1 K/uL (0.0-0.4); EOSINOPHILS % (AUTO) 1.7 % (0.0-4.0); HEMATOCRIT 28.6 % (36-48); HEMOGLOBIN 9.4 g/dL (12.0-16.0); LYMPHOCYTES # (AUTO) 1.2 K/uL (1.0-5.5); LYMPHOCYTES % (AUTO) 18.1 % (20.5-51.5); MEAN CORPUSCULAR HEMOGLOBIN 29 pg (27-31); MEAN CORPUSCULAR HGB CONC 33 % (32-36); MEAN CORPUSCULAR VOLUME 89 fL (79.0-98.0); MONOCYTES # (AUTO) 0.8 K/uL (0.0-1.0); MONOCYTES % (AUTO) 11.4 % (1.7-9.3); NEUTROPHILS # (AUTO) 4.6 K/uL (1.8-7.7); NEUTROPHILS % (AUTO) 68.2 % (40.0-70.0); PLATELET COUNT (AUTO) 166 K/uL (130-430); RED BLOOD CELL COUNT(AUTO) 3.24 MIL/uL (4.2-6.2); RED CELL DISTRIBUTION WIDTH 16.8 % (9.0-15.0); WHITE BLOOD COUNT (AUTO) 6.8 K/uL (4.8-10.8)
[2020-08-10 04:42] LABS: INR 1.1 (0.8-1.2); PROTHROMBIN TIME 11.2 SECS (9.5-12.5)
[2020-08-10] MEDS ORDERED: COCAINE 4% SOLUTION TP ONE (04:45)
[2020-08-10] MEDS ORDERED: OXYMETAZOLINE HCL 0.05% NASAL SPRAY NS ONE (04:52)
--- NOTE | 2020-08-10 06:09 | NUR ---
Dr Yun at bedside, rhino rocket placed.
--- NOTE | 2020-08-10 06:37 | NUR ---
Update given to Son, Chase and will be at [facility] to picker feeder the patint in 30 minutes. Instructions given to son for patient to follow up with PCP.
[2020-08-10 07:21] VITALS: BP_SYST 133
--- NOTE | 2020-08-10 07:21 | NUR ---
Patient given written and verbal discharge instructions and verbalizes understanding. ER MD discussed with patient the results and treatment provided. Patient in stable condition. ID arm band removed. Patient educated on pain management and to follow up with PMD. Pain Scale []. Opportunity for questions provided and answered. Medication side effect fact sheet provided.
== END 2020-08-10 07:21 | disposition home or self-care (01) ==
LOC: SED 03:10
DX: D64.9 Anemia, unspecified (principal); R04.0 Epistaxis; I48.91 Unspecified atrial fibrillation; I10 Essential (primary) hypertension; E11.9 Type 2 diabetes mellitus without complications; Z79.4 Long term (current) use of insulin; Z79.899 Other long term (current) drug therapy; Z79.82 Long term (current) use of aspirin
CPT/HCPCS: 36415; 85025; 85610-TC; 85730-TC; 99284